=== PATIENT | male | born 1995 | race Caucasian/White ===

== ENCOUNTER 2020-02-07 10:12 | Emergency (ER) | payer OTHER ==
[2020-02-07 10:26] VITALS: BP 121/86; PULSE 83; TEMP 97.9; BMI 22.5
--- NOTE | 2020-02-07 10:54 | PDOC ---
History of Present Illness - General Chief Complaint: Rash Stated Complaint: SKIN RASH Time Seen by Provider: 02/07/20 10:26 History Source: Patient Exam Limitations: No Limitations - History of Present Illness Initial Comments: 02/07/20 10:45 24-year-old male history of migraine headaches presents complaining of left eye redness with mild discomfort and matting upon awakening in the morning. Also complaining of pruritic rash that began on bilateral dorsum of feet last night. This morning rash has spread to bilateral lower extremities and upper back. Patient has tried upap-yrl-plqulbt "pinkeye drops" which has provided some relief to left eye. Also tried hydrocortisone 1% and topical Benadryl over the rash which has slightly helped with itching. Reports subjective fever last night, mild frontal headache, denies body aches, cough, shortness of breath, difficulty breathing, nausea, chest pain, abdominal pain, vomiting, diarrhea, urinary complaints. Patient states he went hiking 1 week ago. ROS: as above PE: GENERAL: well-appearing, NAD, speaking full sentences HEAD: NCAT EYES: VA OD 20/25, OS 20/25, OU 20/20, Pupils equal, round and reactive to light, moderate erythema to left conjunctiva, no matting or discharge noted ENT: pharynx: no erythema, no exudate, uvula midline NECK: supple, no lymphadenopathy CHEST: nontender RESP: clear, no w/r/r CARDIO: rrr, no m/g/r ABD: +BS, soft, nontender, non distended BACK: no midline spinal ttp, no CVAT EXTREMITIES: Normal range of motion, no edema NEUROLOGICAL: Normal speech, normal gait SKIN: Small papular areas to dorsum of bilateral feet, upper back, and one noted on left forearm, no target lesion noted, no vesicles, no excoriations, no surrounding erythema, no warmth or tenderness to palpation Is this a multiple visit Asthma Patient?: No Past History - Medical History Allergies/Adverse Reactions: Allergies Allergy/AdvReac Type Severity Reaction Status Date / Time No Known Allergies Allergy Verified 02/07/20 10:23 Home Medications: Ambulatory Orders Cephalexin Monohydrate [Keflex] 500 mg PO BID #14 capsule 12/19/11 No Home Medications 12/19/11 Ofloxacin 0.3% Ophth Soln [Ocuflox -] 1 drop OS Q4H #30 drops 02/07/20 Prednisone [Prednisone 50 MG TABLETS] 50 mg PO ONCE 3 Days #3 tablet 02/07/20 COPD: No - Immunization History Immunization Up to Date: Yes - Psycho-Social/Smoking History Smoking Status: No Smoking History: Never smoked Number of Cigarettes Smoked Daily: 0 - Substance Abuse Hx (Audit-C & DAST Scrn) How often the patient has a drink containing alcohol: Never Score: In Men: 4 or > Positive; In Women: 3 or > Positive: 0 Screen Result (Pos requires Nsg. Audit-10AR): Negative *Physical Exam - Vital Signs Last Vital Signs Temp Pulse Resp BP Pulse Ox 97.9 F 83 18 121/86 99 02/07/20 10:20 02/07/20 10:20 02/07/20 10:20 02/07/20 10:20 02/07/20 10:20 Medical Decision Making - Medical Decision Making 02/07/20 10:54 24-year-old male history of migraine headaches presents complaining of left eye redness with mild discomfort and matting upon awakening in the morning. Also complaining of pruritic rash that began on bilateral dorsum of feet last night. This morning rash has spread to bilateral lower extremities and upper back. Patient has tried xjau-ooq-dsyvkot "pinkeye drops" which has provided some relief to left eye. Also tried hydrocortisone 1% and topical Benadryl over the rash which has slightly helped with itching. Reports subjective fever last night, mild frontal headache, denies body aches, cough, shortness of breath, difficulty breathing, nausea, chest pain, abdominal pain, vomiting, diarrhea, urinary complaints. Patient states he went hiking 1 week ago. will treat for bacterial conjunctivitis with ofloxacin Will treat pruritic rash with p.o. prednisone 60 mg one dose today Starting tomorrow patient will take prednisone 50 mg daily for 3 days Advised patient to take benadryl 25 mg when he gets home for itching Patient declines Benadryl in the ED given he is driving Instructed patient to follow-up with PMD this If symptoms worsen advised to return to ED Discharge - Discharge Information Problems reviewed: Yes Clinical Impression/Diagnosis: Rash Conjunctivitis Qualifiers: Conjunctivitis type: other Laterality: left Qualified Code(s): H10.89 - Other conjunctivitis Condition: Stable Disposition: HOME - Admission No - Additional Discharge Information Prescriptions: Ofloxacin 0.3% Ophth Soln [Ocuflox -] 1 drop OS Q4H #30 drops Prednisone [Prednisone 50 MG TABLETS] 50 mg PO ONCE 3 Days #3 tablet - Follow up/Referral Referrals: Maribell Herrmann [Primary Care Provider] - - Patient Discharge Instructions Additional Instructions: Apply ofloxacin to left eye as indicated Take prednisone 50 mg 1 tablet daily starting tomorrow for 3 days Follow-up with your primary care doctor within 2-3 days If symptoms worsen return to ED - Post Discharge Activity
[2020-02-07] MEDS ORDERED: predniSONE 20 MG TABLET (UD) PO ONE (10:56)
[2020-02-07] MEDS ORDERED: predniSONE 20 MG TABLET (UD) ONE (11:17)
== END 2020-02-07 11:29 | disposition home or self-care (01) ==
LOC: JERFT 10:12 → JER 10:12 → JERFT 11:29
DX: R21 Rash and other nonspecific skin eruption (principal); H10.89 Other conjunctivitis
CPT/HCPCS: 99283-25